=== PATIENT | female | born 1995 | race African-American/Black ===

== ENCOUNTER 2016-10-12 19:19 | Emergency (ER) | payer SELFPAY ==
[~2016-10-12] VITALS: Ht 172.7 cm; Wt 86.4 kg
[2016-10-12 19:20] VITALS: BP 147/96; PULSE 88; RESP 15; TEMP 99; O2SAT 97
--- NOTE | 2016-10-12 19:59 | PD ---
Physical Exam Time Seen by Provider: 19:58 Narrative 21yo F c/o R upper tooth pain with facial selling today. Denies fever, vomiting. Patient seen in triage. VS reviewed. Awaiting bed placement. Data Data Last Documented VS Vital Signs Date Time Temp Pulse Resp B/P (MAP) Pulse Ox O2 Delivery O2 Flow Rate FiO2 10/12/16 19:20 99.0 88 15 147/96 (113) 97 Room Air MDM Supervised Visit with EUGENE: Cristin Rainey Oct 12, 2016 19:59
[2016-10-12] MEDS ORDERED: ULTR50TA5 PO (21:03)
[2016-10-12] MEDS ORDERED: AMOX500T PO (21:03)
--- NOTE | 2016-10-12 21:04 | PD ---
HPI Chief Complaint: Oral / Dental Pain or Problem Time Seen by Provider: 20:53 Travel History International Travel<30 days: No Contact w/Intl Traveler<30days: No Traveled to known affect area: No History of Present Illness HPI C/O RT SIDED TOOTH PAIN, INTERMITTENT OVER PAST 2 WEEKS, BUT OVER LAST DAY OR SO , STARTED SWELLING TO FACE (MINIMALLY).... NKDA NO PSHX AND ONLY PMHX OF ASTHMA PFSH Past Medical History Medical History: Denies Significant Hx Tetanus Vaccination: Unknown Influenza Vaccination: No ?: Not LMP: 01/2016 : 0 Past Surgical History Other Surgery: Yes (LEFT HAND SKIN GRAFT A BABY ) Social History Alcohol Use: No Tobacco Use: No Substance Use: No Allergies-Medications (Allergen,Severity, Reaction): Coded Allergies: No Known Allergies (Unverified , 10/12/16) Reported Meds & Prescriptions Reported Meds & Active Scripts Active No Active Prescriptions or Reported Medications Review of Systems Except as stated in HPI: all other systems reviewed are Neg HENT: Positive: Dental Difficulties Physical Exam Narrative GENERAL: SKIN: Warm and dry. HEAD: Atraumatic. Normocephalic. EYES: Pupils equal and round. No scleral icterus. No injection or drainage. ENT: No nasal bleeding or discharge. Mucous membranes pink and moist. MANDIBULAR GINGIVITIS NOTED, WITH EARLY TOOTH ABSCESS WITHOUT ANY DRAINAGE AT THIS POINT NECK: Trachea midline. No JVD. CARDIOVASCULAR: Regular rate and rhythm. RESPIRATORY: No accessory muscle use. Clear to auscultation. Breath sounds equal bilaterally. GASTROINTESTINAL: Abdomen soft, non-tender, nondistended. MUSCULOSKELETAL: Extremities without clubbing, cyanosis, or edema. No obvious deformities. NEUROLOGICAL: Awake and alert. No obvious cranial nerve deficits. Motor grossly within normal limits. Five out of 5 muscle strength in the arms and legs. Normal speech. PSYCHIATRIC: Appropriate mood and affect; insight and judgment normal. Data Data Last Documented VS Vital Signs Date Time Temp Pulse Resp B/P (MAP) Pulse Ox O2 Delivery O2 Flow Rate FiO2 10/12/16 19:20 99.0 88 15 147/96 (113) 97 Room Air MDM Medical Decision Making Medical Screen Exam Complete: Yes Emergency Medical Condition: No Medical Record Reviewed: Yes Differential Diagnosis N/A Narrative Course PATIETN SEEN AND GIVEN PO ABX AND D/C HOME Diagnosis Primary Impression: EARLY DENTAL ABSCESS Scripts Amoxicillin (Amoxicillin) 500 Mg Tab 500 MG PO BID for Infection, #20 TAB 0 Refills Prov: Jatin Alba MD 10/12/16 Tramadol (Ultram) 50 Mg Tab 50 MG PO Q4H Y for PAIN, #28 TAB 0 Refills Prov: Jatin Alba MD 10/12/16 Disposition: 01 DISCHARGE HOME Condition: Stable Jatin Alba MD Oct 12, 2016 21:04
== END 2016-10-12 22:19 | disposition home or self-care (01) ==
LOC: NEPD 19:19
DX: K04.7 Periapical abscess without sinus (principal); K08.89 Other specified disorders of teeth and supporting structures; J45.909 Unspecified asthma, uncomplicated
CPT/HCPCS: 99284